=== PATIENT | female | born 1945 | race Caucasian/White ===

== ENCOUNTER 2016-08-05 14:01 | Emergency (ER) | payer OTHER, BC ==
[~2016-08-05] VITALS: Ht 162.6 cm; Wt 65.8 kg
--- NOTE | ~2016-08-05 | EKG ---
[address] [place] [address] ELECTROCARDIOGRAM REPORT Name: ADRIAN MOSQUERA Room #: [facility] FALLSAimee#: [id number] Admission: 08/05/16 Attend Phys: Discharge: 08/05/16 Date of : 49 Report #: [id number] THIS REPORT FOR: //name// [facility] ED Test Date: 2016-08-05 Test Time: 14:04:44 Pat Name: ADRIAN MOSQUERA Department: Room: Gender: F [employer]: JOHAN : 1945 Requested By: Teri Cabrera Order Number: [id number] MD: Jarek Jensen Measurements Intervals Palmer Rate: 69 P: 54 AR: 150 QRS: 28 QRSD: 96 T: 45 QT: 390 QTc: 418 Interpretive Statements Sinus rhythm No significant abnormality No previous ECG available for comparison Electronically Signed On 08-06-2016 8:00:30 [employer] by Jarek Jensen [email or web address] <ELECTRONICALLY SIGNED> By: Jarek Jensen MD, [facility] 08/06/16 0800 1404 1404 Jarek Jensen MD, FACC /EPI
[2016-08-05] MEDS ORDERED: LEVOTHYROXIN0.075 MG PO (14:35)
[2016-08-05] MEDS ORDERED: OMEGA-31000 M1 PO (14:35)
[2016-08-05 14:38] LABS: ABSOLUTE NEUTROPHILS 3.8 thou/uL (1.4-8.2); BASOPHILS 1.1 % (0.0-2.0); EOSINOPHILS 2.1 % (0.0-3.0); HEMATOCRIT 41.2 % (37.0-47.0); LYMPHOCYTES 43.3 % (24.0-44.0); MCH 29.1 pg (26.0-34.0); MCHC 34.1 % (28.0-37.0); MCV 85.4 fL (80.0-100.0); MONOCYTES 6.3 % (1.0-8.0); PLATELET COUNT 300 thou/uL (150-400); POLYS 47.2 % (36.0-66.0); RBC 4.82 mil/uL (4.20-5.00); RDW 13.5 % (10.5-14.5); WBC 8.1 thou/uL (4.0-11.0)
[2016-08-05 14:40] LABS: MANUAL DIFF NO
[2016-08-05 14:44] LABS: ANION GAP 10 mmol/L (7-16); BUN 14 mg/dL (7-18); CALCIUM 9.3 mg/dL (8.5-10.1); CHLORIDE 105 mmol/L (98-107); CO2 26 mmol/L (21-32); CREATININE 0.9 mg/dL (0.6-1.3); GLUCOSE 105 mg/dL (70-99); POTASSIUM 4.1 mmol/L (3.5-5.1); SODIUM 141 mmol/L (136-145)
[2016-08-05 14:58] LABS: TROPONIN-I < 0.04 ng/mL (<0.04-0.07)
[2016-08-05 15:25] VITALS: BP 138/69
== END 2016-08-05 15:25 | disposition home or self-care (01) ==
LOC: ER 14:01
PROVIDERS: Emergency Medicine
DX: F43.20 Adjustment disorder, unspecified (principal); Z98.890 Other specified postprocedural states; G56.03 Carpal tunnel syndrome, bilateral upper limbs; E78.00 Pure hypercholesterolemia, unspecified; Z88.8 Allergy status to other drugs, medicaments and biological substances; F43.29 Adjustment disorder with other symptoms